=== PATIENT | female | born 1945 | race Caucasian/White ===

== ENCOUNTER 2018-05-16 18:13 | Emergency (ER) | payer BC, MEDICARE ==
[2018-05-16] MEDS ORDERED: HEPARIN INFUSION - 25,000 UNITS/500 ML INFUS.BAG IVPB ONE (18:27)
[2018-05-16] MEDS ORDERED: ASPIRIN 300 MG SUPP.RECT PR ONE (18:28)
[2018-05-16] MEDS ORDERED: HEPARIN - 25,000 UNIT in SODIUM CHLORIDE 495 ML IV SCH (18:30)
[2018-05-16] MEDS ORDERED: NOREPINEPHRINE BITARTRATE 8,000 MCG in SODIUM CHLORIDE 0.45% 992 ML IV SCH (18:45)
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
[2018-05-16] MEDS ORDERED: AMIODARONE IN DEXTROSE,ISO-OSM 150 MG/100 ML BAG IVPB ONE (18:58)
[2018-05-16] MEDS ORDERED: AMIODARONE HCL 150 MG/3 ML VIAL ONE ×2 (19:06→19:14)
[2018-05-16] MEDS ORDERED: LORazepam 2 MG/ML SDV VIAL ONE (19:07)
[2018-05-16 19:33] VITALS: BP 113/65; PULSE 84
[2018-05-16 19:44] VITALS: BMI 39.1
[2018-05-16 19:59] LABS: BASO % 0.4 % (0-2.0); EOS % 1.9 % (0-4.5); HEMATOCRIT 40.1 % (32.4-45.2); HEMOGLOBIN 13.4 GM/dL (10.7-15.3); LYMPH % 57.1 % (8-40); MCHC 33.3 g/dl (32.0-36.0); MEAN PLT VOLUME 11.4 fl (7.5-11.1); MONO % 5.2 % (3.8-10.2); NEUT % 35.4 % (42.8-82.8); PLATELET COUNT 173 K/MM3 (134-434); RBC 4.18 M/mm3 (3.60-5.2); RDW 13.6 % (11.6-15.6); WHITE BLOOD COUNT 8.3 K/mm3 (4.0-10.0)
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
[2018-05-16 20:13] LABS: INR 1.04 (0.82-1.09); PROTHROMBIN TIME (PATIENT) 11.8 SEC (9.7-13.0)
[2018-05-16 20:23] LABS: ALK PHOS 77 U/L (45-117); ANION GAP 17 (8-16); BILIRUBIN,TOTAL 0.4 mg/dL (0.2-1.0); BLOOD UREA NITROGEN 18 mg/dL (7-18); CALCIUM 9.8 mg/dL (8.5-10.1); CHLORIDE 89 mmol/L (98-107); CO2 20 mmol/L (21-32); GLUCOSE,RANDOM 220 mg/dL (74-106); SGPT/ALT 158 U/L (12-78); SODIUM 126 mmol/L (136-145); TOT PROT 6.3 g/dl (6.4-8.2)
[2018-05-16 20:28] LABS: POTASSIUM 3.5 mmol/L (3.5-5.1); SGOT/AST 137 U/L (15-37)
[2018-05-17 10:21] LABS: N-TERMINAL BNP 844.92 pg/ml (5-125)
[2018-05-17 10:48] LABS: MAGNESIUM 3.1 mg/dL (1.8-2.4)
--- NOTE | 2018-05-17 14:31 | EKG ---
Test Reason : Blood Pressure : / mmHG Vent. Rate : 082 BPM Atrial Rate : 086 BPM P-R Int : 000 ms QRS Dur : 122 ms QT Int : 404 ms P-R-T Axes : 000 -68 228 degrees QTc Int : 472 ms WIDE QRS RHYTHM RIGHT BUNDLE BRANCH BLOCK LEFT ANTERIOR FASCICULAR BLOCK BIFASCICULAR BLOCK MARKED ST ABNORMALITY, POSSIBLE INFERIOR SUBENDOCARDIAL INJURY MARKED ST ABNORMALITY, POSSIBLE ANTEROLATERAL SUBENDOCARDIAL INJURY ABNORMAL ECG NO PREVIOUS ECGS AVAILABLE Confirmed by JOEL ESPINAL MD ([id number]) on 05/17/2018 2:30:59 PM Referred By: Confirmed By:JOEL ESPINAL MD
== END 2018-05-16 19:20 | disposition short-term general hospital (02) ==
LOC: JER 18:13
PROC: 3E033GC Introduction of Other Therapeutic Substance into Peripheral Vein, Percutaneous Approach (ICD-10-PCS; principal; 2018-05-16)
DX: I46.9 Cardiac arrest, cause unspecified (principal); V44.5XXA Car driver injured in collision with heavy transport vehicle or bus in traffic accident, initial encounter; Y93.89 Activity, other specified; Y92.410 Unspecified street and highway as the place of occurrence of the external cause
CPT/HCPCS: 36415; 80053; 82550; 83605; 83735; 83880; 84484; 85025; 85610; 93005; 93010; 99284-25; J0282; J1644